=== PATIENT | male | born 1980 | race Two or more races ===

== ENCOUNTER 2020-10-25 15:55 | Outpatient (REF) | payer OTHER, SELFPAY ==
--- NOTE | ~2020-10-25 | US_ITS ---
EXAMINATION: US PELVIS LIMITED (BLADDER) CLINICAL INFORMATION: Dysuria. COMPARISON: Ultrasound abdomen complete 07/20/2019. TECHNIQUE: Real-time imaging of the bladder. FINDINGS: BLADDER: Partially distended. Bilateral ureteral jets are demonstrated. Prevoid bladder volume is 115 mL. Postvoid bladder volume is 1.8 mL. Prostate volume 11.7 mL US/US bladder IMPRESSION: No evidence of obstructive uropathy. No significant postvoid residual..
== END 2020-10-25 15:56 | disposition home or self-care (01) ==
LOC: HO.US 15:55
PROVIDERS: PCP Internal Medicine; Visit Provider Internal Medicine
DX: R76.8 Other specified abnormal immunological findings in serum (principal)
CPT/HCPCS: 76857

== ENCOUNTER 2023-12-01 16:05 | Outpatient (AMB) | payer OTHER, SELFPAY ==
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
[2023-12-01 16:11] VITALS: BP 130/70; PULSE 136; O2SAT 96; BMI 23.6
== END 2023-12-01 17:07 | disposition home or self-care (01) ==
PROVIDERS: PCP Internal Medicine; Visit Provider Internal Medicine
DX: Z00.00 Encounter for general adult medical examination without abnormal findings (principal); E11.65 Type 2 diabetes mellitus with hyperglycemia; F19.10 Other psychoactive substance abuse, uncomplicated; E78.1 Pure hyperglyceridemia; Z72.0 Tobacco use; E78.00 Pure hypercholesterolemia, unspecified; R76.8 Other specified abnormal immunological findings in serum; F41.1 Generalized anxiety disorder; K21.9 Gastro-esophageal reflux disease without esophagitis

== ENCOUNTER → 2023-12-01 16:05 | Outpatient (BNVA) | payer OTHER, SELFPAY | PROVIDERS: PCP Internal Medicine; Visit Provider Internal Medicine | DX: Z00.00 Encounter for general adult medical examination without abnormal findings (principal); E11.65 Type 2 diabetes mellitus with hyperglycemia; E78.1 Pure hyperglyceridemia; F19.10 Other psychoactive substance abuse, uncomplicated; E78.00 Pure hypercholesterolemia, unspecified; R76.8 Other specified abnormal immunological findings in serum; F41.1 Generalized anxiety disorder; K21.9 Gastro-esophageal reflux disease without esophagitis; Z72.0 Tobacco use; Z79.899 Other long term (current) drug therapy | CPT/HCPCS: 83036; 96127 ==